=== PATIENT | male | born 1970 | race African-American/Black ===

== ENCOUNTER 2016-10-08 22:39 | Emergency (ER) | payer SELFPAY ==
[~2016-10-08] VITALS: Ht 180.3 cm; Wt 106.9 kg
[~2016-10-08 22:39] MED LIST: CYCL-36 PO; IBUP-238 PO; METH750T2 PO; NAPR-576 PO; Z.0.NO CURRENT MEDS
[2016-10-08 22:51] VITALS: BP 156/86; PULSE 73; RESP 14; TEMP 97.7; O2SAT 100
[2016-10-09] MEDS ORDERED: HYDR12.57 PO (01:20)
[2016-10-09] MEDS ORDERED: LISI-519 PO (01:20)
[2016-10-09 01:27] VITALS: BP 127/72; PULSE 67; RESP 18; TEMP 97.5; O2SAT 97
--- NOTE | 2016-10-09 01:56 | PD ---
HPI Chief Complaint: Headache Time Seen by Provider: : Travel History International Travel<30 days: No Contact w/Intl Traveler<30days: No Traveled to known affect area: No History of Present Illness HPI Patient is a 46-year-old male who comes in after he banged his head. He says he was climbing a ladder and hit the top of his head. He did not fall down he did not pass out. He said he had a headache, but he took Aleve and is better now. He denies nausea or vomiting. He had some dizziness at the time, but it is better. He denies numbness or tingling in his extremities. He denies any neck pain. PFSH Past Medical History Hypertension: Yes Tetanus Vaccination: Unknown Influenza Vaccination: No Past Surgical History Surgical History: No Previous Surgery Social History Alcohol Use: No Tobacco Use: No Substance Use: No Allergies-Medications (Allergen,Severity, Reaction): Coded Allergies: No Known Allergies (Verified , 10/09/16) Reported Meds & Prescriptions Reported Meds & Active Scripts Active Reported Hydrochlorothiazide 12.5 Mg Cap 12.5 Mg PO BID Lisinopril 5 Mg Tab 5 Mg PO BID Review of Systems General / Constitutional: No: Fever, Chills Eyes: No: Blurred Vision HENT: Positive: Headaches, No: Lightheadedness Cardiovascular: No: Chest Pain or Discomfort Respiratory: No: Shortness of Breath Gastrointestinal: No: Nausea, Vomiting Musculoskeletal: No: Myalgias, Pain Skin: No Rash, No Change in Pigmentation Neurologic: No: Weakness, Dizziness, Paresthesia, Sensory Disturbance Physical Exam Narrative GENERAL: Awake and alert, in no acute distress. SKIN: Focused skin assessment warm/dry. HEAD: Atraumatic. Normocephalic. EYES: Pupils equal and round and reactive. No scleral icterus. Extraocular movements intact ENT: Mucous membranes pink and moist. NECK: Trachea midline. No JVD. No cervical spine tenderness. CARDIOVASCULAR: Regular rate and rhythm. No murmur appreciated. RESPIRATORY: No accessory muscle use. Clear to auscultation. Breath sounds equal bilaterally. MUSCULOSKELETAL: No obvious deformities. No clubbing. No cyanosis. No edema. NEUROLOGICAL: Awake and alert. No obvious cranial nerve deficits. Motor grossly within normal limits. Normal speech. Data Data Last Documented VS Vital Signs Date Time Temp Pulse Resp B/P Pulse Ox O2 Delivery O2 Flow Rate FiO2 10/09/16 01:27 97.5 67 18 127/72 97 Room Air MDM Medical Decision Making Medical Screen Exam Complete: Yes Emergency Medical Condition: Yes Differential Diagnosis Headache versus head trauma versus concussion Narrative Course Patient is a 46-year-old male who comes in complaining of a headache after he bumped his head. Exam shows no neurologic abnormalities. Patient says he is feeling much better after the LEEP Tech. He is offered a CT scan of his head, but declines at this time. He'll be discharged home. He is advised to return any time for any worsening symptoms. Diagnosis Primary Impression: Headache Qualified Code: R51 - Acute nonintractable headache, unspecified headache type Patient Instructions: General Instructions, Head Injury (ED) Additional Instructions: Take Tylenol or Ibuprofen as needed for pain. Follow up with your doctor. Return to the ED as needed for any worsening symptoms. Disposition: 01 DISCHARGE HOME Condition: Stable Gin Lal MD Oct 09, 2016 01:56
== END 2016-10-09 02:11 | disposition home or self-care (01) ==
LOC: PHED 22:39
DX: R51 Headache (principal); I10 Essential (primary) hypertension; W22.8XXA Striking against or struck by other objects, initial encounter; Y93.39 Activity, other involving climbing, rappelling and jumping off
CPT/HCPCS: 99282

== ENCOUNTER 2017-01-20 10:54 | Inpatient (IN) | payer SELFPAY ==
[~2017-01-20] VITALS: Ht 182.9 cm; Wt 105.5 kg
[2017-01-20] VITALS (9 sets, daily range): BP systolic 120–158; BP diastolic 70–96; PULSE 61–75; RESP 16–20; TEMP 98–98.5; O2SAT 100
[~2017-01-20 10:54] MED LIST changes: -CYCL-36 PO; +HYDR12.57 PO; -IBUP-238 PO; +LISI-519 PO; -METH750T2 PO; -NAPR-576 PO; -Z.0.NO CURRENT MEDS
[2017-01-20] MEDS ORDERED: SODIUM CHLOR 0.9% 1000 ML INJ 1,000 ML IV ONE (10:56)
--- NOTE | 2017-01-20 11:05 | PD ---
HPI Chief Complaint: stroke alert Time Seen by Provider: 10:56 Travel History International Travel<30 days: No Contact w/Intl Traveler<30days: No Traveled to known affect area: No History of Present Illness HPI The patient is a 46-year-old [place] male who presents to the emergency department via EMS as a stroke alert. EMS states the patient's symptoms started approximately 1010 a.m. with left-sided facial droop, dysarthria, and weakness of the left aspect of the body. EMS states when they arrived the patient's stated that the patient's speech was slightly off, despite his accent, she states his speech was slightly altered. The patient also was noted to have left facial droop, weakness to left arm and left leg. The patient had fallen approximately 3 times after his symptoms started per EMS report. The patient does have a history of hypertension and took his blood pressure medications prior to arrival. The patient does complain of left-sided weakness and mild changes in his speech, he denies any headache or vision changes. The patient does have a history of hypertension, denies any previous history of CVA or TIA. Symptoms are moderate, started at 10:10 AM, and there are no current alleviating factors. PFSH Past Medical History Hypertension: Yes Past Surgical History Narrative Surgical Noncontributory Social History Alcohol Use: No Tobacco Use: No Substance Use: No Allergies-Medications (Allergen,Severity, Reaction): Coded Allergies: No Known Allergies (Verified Allergy, Unknown, 01/20/17) Reported Meds & Prescriptions Reported Meds & Active Scripts Active Reported Doxazosin (Doxazosin Mesylate) 4 Mg Tab 4 Mg PO DAILY Amlodipine (Amlodipine Besylate) 5 Mg Tab 5 Mg PO DAILY Hydrochlorothiazide 12.5 Mg Cap 12.5 Mg PO BID Lisinopril 5 Mg Tab 20 Mg PO BID Review of Systems Except as stated in HPI: all other systems reviewed are Neg HENT: No: Lightheadedness Cardiovascular: No: Chest Pain or Discomfort Respiratory: No: Shortness of Breath Gastrointestinal: No: Nausea, Vomiting Musculoskeletal: Positive: Weakness Neurologic: Positive: Weakness, Focal Abnormalities, Slurred Speech, No: Headache, Change in Mentation, Paresthesia, Sensory Disturbance Physical Exam Narrative GENERAL: Awake, alert, pleasant 46-year-old male who appears his stated age and is in no acute respiratory distress. SKIN: Focused skin assessment warm/dry. HEAD: Atraumatic. Normocephalic. EYES: Pupils equal and round. Pupils are 3 mm bilateral and reactive. EOMs are intact. Patient is able to see fingers at a distance of 2 feet without difficulty. Mild injection noted. ENT: No nasal bleeding or discharge. Mucous membranes pink and moist. NECK: Trachea midline. No JVD. CARDIOVASCULAR: Regular rate and rhythm. No murmur appreciated. RESPIRATORY: No accessory muscle use. Clear to auscultation. Breath sounds equal bilaterally. GASTROINTESTINAL: Abdomen soft, non-tender, nondistended. MUSCULOSKELETAL: No obvious deformities. No clubbing. No cyanosis. No edema. NEUROLOGICAL: Awake and alert. Asymmetry of smile with left-sided facial droop noted. Patient is able to see fingers at a distance of 2 feet without difficulty. EOMs are intact. Tongue is midline. Drift to left arm, however, does not follow the bed. Drift of the left leg, falls to the bed prior to 10 seconds. Finger to nose is normal. [id number] is normal. Mild dysarthria noted. Sensation is symmetric on the face, arms, legs bilaterally. A she is alert and oriented 3. Follows simple commands. PSYCHIATRIC: Appropriate mood and affect; insight and judgment normal. Data Data Last Documented VS Vital Signs Date Time Temp Pulse Resp B/P (MAP) Pulse Ox O2 Delivery O2 Flow Rate FiO2 01/20/17 12:05 75 20 140/91 (107) 100 Nasal Cannula 2.00 01/20/17 10:55 98.3 Orders Orders Diet Npo (01/20/17 Lunch) Activity Bed Rest (01/20/17 ) Electrocardiogram (01/20/17 ) I-Stat Creatinine (01/20/17 10:56) I-Stat Profile (01/20/17 10:56) Prothrombin Time / Inr (Pt) (01/20/17 10:56) Act Partial Throm Time (Ptt) (01/20/17 10:56) Complete Blood Count With Diff (01/20/17 10:56) Fibrinogen (01/20/17 10:56) Creatine Kinase (Cpk) (01/20/17 10:56) Troponin I (01/20/17 10:56) Ua Includes Microscopic (01/20/17 10:56) Drug Screen, Random Urine (01/20/17 10:56) Type And Screen (01/20/17 10:56) Ct Brain W/O Iv Contrast(Rout) (01/20/17 ) Cta Brain W Iv Contrast W 3d (01/20/17 10:56) Cta Neck W Iv Contrast W 3d (01/20/17 10:56) Consult Neurology (01/20/17 ) Blood Glucose (01/20/17 10:56) Ecg Monitoring (01/20/17 10:56) Neuro Checks Q2HX12,Q4H (01/20/17 10:56) Nursing Bedside Swallow Assess .ONCE (01/20/17 10:56) Iv Access Insert/Monitor (01/20/17 10:56) NPO (01/20/17 10:56) Oximetry (01/20/17 10:56) Oxygen Administration (01/20/17 10:56) Sodium Chlor 0.9% 1000 Ml Inj (Ns 1000 M (01/20/17 10:56) Resp Oxygen Filiberto C Titrat 1-4 L (01/20/17 10:56) Cath For Specimen (01/20/17 10:56) (Hub Use Only)Inp Phy Cons/Ref (01/20/17 ) ^ Call Pharmacy (01/20/17 11:15) Nih Stroke Scale - Nihss .ONCE (01/20/17 11:15) Urinary Catheter Insert/Apply (01/20/17 11:15) Anticoagulant Alert (01/20/17 11:15) ^ Post Infusion Restrictions (01/20/17 11:15) ^ Medication Alert (01/20/17 11:15) Vital Signs (Adult) .As directed (01/20/17 11:15) Notify Dr: Blood Pressure (01/20/17 11:15) ^ Medication Alert (01/20/17 11:15) Alteplase Bolus (Activase Bolus) (01/20/17 11:15) Alteplase Drip (Activase Drip) (01/20/17 11:30) Sodium Chloride 0.9% Inj (Ns Inj) (01/20/17 11:15) Misc Nursing Information (01/20/17 11:15) Resp Oxygen Filiberto C Titrat 1-4 L (01/20/17 ) Ct Brain W/O Iv Contrast(Rout) (01/21/17 ) Iohexol 350 Inj (Omnipaque 350 Inj) (01/20/17 11:23) CKMB (01/20/17 10:55) CKMB% (01/20/17 10:55) Scd Bilateral/Knee High UMAIR.QSHIFT (01/20/17 11:45) Mri Brain W&W/O Contrast (01/20/17 ) Echo 2d Comp With Doppler (01/20/17 ) Lipid Profile (01/20/17 11:45) Lupus Anticoagulant Drvvt (01/20/17 11:45) Cardiolipin Abs Igg,Igm,Iga (01/20/17 11:45) Protein C Activity (01/20/17 11:45) Protein S Activity (01/20/17 11:45) Factor V Leiden (01/20/17 11:45) Prothrombin [id number] Mutation (01/20/17 11:45) Rapid Plasmin Reagin Screen (01/20/17 11:45) Consult Cardiology (01/20/17 ) (Hub Use Only)Inp Phy Cons/Ref (01/20/17 ) Admit Order (Ed Use Only) (01/20/17 ) Patient Accounts Clerk / Telemetry UMAIR.Q8H (01/20/17 12:15) Vital Signs (Adult) Q4H (01/20/17 12:15) Activity Bed Rest (01/20/17 12:15) Labs Laboratory Tests Test 01/20/17 10:55 White Blood Count 6.8 TH/MM3 Red Blood Count 4.57 MIL/MM3 Hemoglobin 14.2 GM/DL Bedside Hemoglobin 13.6 G/DL Hematocrit 41.2 % Bedside Hematocrit 40.0 % Mean Corpuscular Volume 90.1 FL Mean Corpuscular Hemoglobin 31.1 PG Mean Corpuscular Hemoglobin Concent 34.5 % Red Cell Distribution Width 13.8 % Platelet Count 231 TH/MM3 Mean Platelet Volume 7.4 FL Neutrophils (%) (Auto) 57.2 % Lymphocytes (%) (Auto) 33.6 % Monocytes (%) (Auto) 7.5 % Eosinophils (%) (Auto) 1.1 % Basophils (%) (Auto) 0.6 % Neutrophils # (Auto) 3.9 TH/MM3 Lymphocytes # (Auto) 2.3 TH/MM3 Monocytes # (Auto) 0.5 TH/MM3 Eosinophils # (Auto) 0.1 TH/MM3 Basophils # (Auto) 0.0 TH/MM3 CBC Comment DIFF FINAL Differential Comment Prothrombin Time 10.2 SEC Prothromb Time International Ratio 0.9 RATIO Activated Partial Thromboplast Time 27.9 SEC Fibrinogen 374 mg/dL Bedside Sodium 142 MMOL/L Bedside Potassium 3.3 MMOL/L Bedside Chloride 100 MMOL/L Bedside Blood Urea Nitrogen 16 MG/DL Bedside Creatinine 1.0 MG/DL Bedside Glucose 115 MG/DL Total Creatine Kinase 841 U/L Creatine Kinase MB 3.2 NG/ML Creatine Kinase MB % 0.4 % Troponin I LESS THAN 0.02 NG/ML MDM Medical Screen Exam Complete: Yes Emergency Medical Condition: Yes Medical Record Reviewed: Yes Differential Diagnosis Differential diagnoses includes TIA, CVA, acute neurologic deficit, seizure, intracranial hemorrhage, intracranial mass. Narrative Course IV was established, labs are drawn and sent, and the patient was placed on cardiac telemetry monitoring and continuous pulse ox imaging monitoring. A stroke alert was called and the patient went immediately to CT for CT the brain as well as CTA of the head and neck. The patient's stroke scale was 6 with partial facial paralysis noted, drift to left arm for 10 seconds, drift of the left leg of falls before 5 seconds, and mild dysarthria. A call was placed to the on-call neurologist. CT of the brain is negative for intracranial hemorrhage, I discussed the patient with the radiologist. I also had a discussion with the neurologist, Dr. Harshad Ferrari, who agrees with TPA administration. I had a discussion with the patient at bedside regarding the risk and benefits of TPA, he is agreeable. Therefore, TPA was ordered based on weight. The patient will be admitted to the intensive care unit. The patient was evaluated by the neurologist in the emergency department. Critical Care Narrative Aggregate critical care time was 40 minutes. Time to perform other separately billable procedures was not included in the critical care time. My time did not include minutes spent treating any other patients simultaneously or on activities that did not directly contribute to the patient's treatment. The services I provided to this patient were to treat and/or prevent clinically significant deterioration that could result in: Anoxia, hypoxia, neurologic deficit. I provided critical care services requiring my management, as noted below: Chart data review, documentation time, medication orders and management, vital sign assessments/reviewing monitor data, ordering and reviewing lab tests, ordering and interpreting/reviewing x-rays and diagnostic studies, care of the patient and discussion of the patient with the admitting physicians. Stroke Alert NIHSS NIH Stroke Scale Result: 6 NIHSS Time Completed: 10:52 Procedures Procedure Narrative EKG reveals normal sinus rhythm with a rate of 75. Nonspecific T wave changes. Last Impressions Head CT 01/20/17 0000 Signed Impressions: Service Date/Time: Friday, January 20, 2017 10:53 - CONCLUSION: No acute disease. Reagan Kulkarni MD Laboratory Tests Test 01/20/17 10:55 White Blood Count 6.8 TH/MM3 Red Blood Count 4.57 MIL/MM3 Hemoglobin 14.2 GM/DL Bedside Hemoglobin 13.6 G/DL Hematocrit 41.2 % Bedside Hematocrit 40.0 % Mean Corpuscular Volume 90.1 FL Mean Corpuscular Hemoglobin 31.1 PG Mean Corpuscular Hemoglobin Concent 34.5 % Red Cell Distribution Width 13.8 % Platelet Count 231 TH/MM3 Mean Platelet Volume 7.4 FL Neutrophils (%) (Auto) 57.2 % Lymphocytes (%) (Auto) 33.6 % Monocytes (%) (Auto) 7.5 % Eosinophils (%) (Auto) 1.1 % Basophils (%) (Auto) 0.6 % Neutrophils # (Auto) 3.9 TH/MM3 Lymphocytes # (Auto) 2.3 TH/MM3 Monocytes # (Auto) 0.5 TH/MM3 Eosinophils # (Auto) 0.1 TH/MM3 Basophils # (Auto) 0.0 TH/MM3 CBC Comment DIFF FINAL Differential Comment Prothrombin Time 10.2 SEC Prothromb Time International Ratio 0.9 RATIO Activated Partial Thromboplast Time 27.9 SEC Fibrinogen 374 mg/dL Bedside Sodium 142 MMOL/L Bedside Potassium 3.3 MMOL/L Bedside Chloride 100 MMOL/L Bedside Blood Urea Nitrogen 16 MG/DL Bedside Creatinine 1.0 MG/DL Bedside Glucose 115 MG/DL Total Creatine Kinase 841 U/L Troponin I LESS THAN 0.02 NG/ML CTA of the carotids reveals normal study CTA of the head reveals no evidence of carotid or proximal cerebral filling defects or steno-occlusive disease Physician Communication Physician Communication The on-call vmware administrator was paged for admission. I discussed the patient with Dr. Bagley who agrees with admission. Diagnosis Diagnosis: Primary Impression: Dysarthria due to cerebrovascular accident (CVA) Admitting Physician Requests: Admit Condition: Stable Salo Roy MD Jan 20, 2017 11:05
[2017-01-20] MEDS ORDERED: SODIUM CHLORIDE 0.9% 50 ML BAG IVF ONE (11:15)
[2017-01-20] MEDS ORDERED: ALTEPLASE BOLUS 9 MG/9 ML SYR IV ONE (11:15)
[2017-01-20] MEDS ORDERED: MISCELLANEOUS NURSING INFORMATION XX PRN (11:15)
[2017-01-20 11:16] LABS: I-STAT POTASSIUM 3.3 MMOL/L (3.5-4.9); I-STAT SODIUM 142 MMOL/L (138-146)
[2017-01-20 11:19] LABS: AUTOMATED NEUTROPHIL # 3.9 TH/MM3 (1.8-7.7); BASOPHIL % 0.6 % (0.0-2.0); EOSINOPHIL # 0.1 TH/MM3 (0-0.4); EOSINOPHIL % 1.1 % (0.0-4.0); HEMATOCRIT 41.2 % (39.0-51.0); HEMO FLAGS DIFF FINAL; LYMPH % 33.6 % (9.0-44.0); LYMPHOCYTE # 2.3 TH/MM3 (1.0-4.8); MEAN CELL VOLUME 90.1 FL (80.0-100.0); MEAN CORPUSCULAR HEMOGLOBIN 31.1 PG (27.0-34.0); MEAN CORPUSCULAR HGB CONC 34.5 % (32.0-36.0); MONO % 7.5 % (0.0-8.0); NEUT % 57.2 % (16.0-70.0); PLATELET COUNT 231 TH/MM3 (150-450); RED BLOOD COUNT 4.57 MIL/MM3 (4.50-5.90); RED CELL DISTRIBUTION WIDTH 13.8 % (11.6-17.2); WHITE BLOOD COUNT 6.8 TH/MM3 (4.0-11.0)
--- NOTE | 2017-01-20 11:20 | RADRPT ---
EXAM DATE/TIME: 01/20/2017 10:53 [facility] COMPARISON: No previous studies available for comparison. INDICATIONS : Slurred speech, left sided weakness. RADIATION DOSE: 69.15 CTDIvol (mGy) This report was called by Stewart Roy at 11: 15 MEDICAL HISTORY : Hypertension. SURGICAL HISTORY : unobtainable ENCOUNTER: Initial ACUITY: 1 day PAIN SCALE: 0/10 LOCATION: cranial TECHNIQUE: Multiple contiguous axial images were obtained of the head. Using automated exposure control and adj ustment of the mA and/or kV according to patient size, radiation dose was kept as low as reasonably a chievable to obtain optimal diagnostic quality images. DICOM format image data is available electro nically for review and comparison. FINDINGS: CEREBRUM: The ventricles are normal for age. No evidence of midline shift, mass lesion, hemorrhage or acute in farction. No extra-axial fluid collections are seen. POSTERIOR FOSSA: The cerebellum and brainstem are intact. The 4th ventricle is midline. The cerebellopontine angle i s unremarkable. EXTRACRANIAL: The visualized portion of the orbits is intact. SKULL: The calvaria is intact. No evidence of skull fracture. CONCLUSION: No acute disease. Reagan Kulkarni MD on January 20, 2017 at 11:13 Board Certified Radiologist. This report was verified electronically.
[2017-01-20] MEDS ORDERED: IOHEXOL 350 MG/ML 10 ML VIAL (for RAD DIAG) IVCONTRAST ONE (11:23)
[2017-01-20 11:27] LABS: APTT (PATIENT) 27.9 SEC (24.3-30.1); INTERNATIONAL NORMALIZED RATIO 0.9 RATIO; PROTHROMBIN TIME - PATIENT 10.2 SEC (9.8-11.6)
[2017-01-20] MEDS ORDERED: ALTEPLASE DRIP 81 MG in SYRINGE/BAG 1 EA IV ONE (11:30)
[2017-01-20 11:46] LABS: CREATINE KINASE 841 U/L (39-308)
[2017-01-20 11:59] LABS: CKMB 3.2 NG/ML (0.5-3.6)
[2017-01-20] MEDS ORDERED: AMLO5TAB2 PO (12:05)
[2017-01-20] MEDS ORDERED: DOXA1TAB34 PO (12:05)
--- NOTE | 2017-01-20 12:10 | RADRPT ---
EXAM DATE/TIME: 01/20/2017 10:58 [facility] COMPARISON: No previous studies available for comparison. INDICATIONS : Slurred speech, left sided weakness. IV CONTRAST: 74 cc Omnipaque 350 (iohexol) IV ; Cumulative dose for multiple exams. RADIATION DOSE: 28.73 CTDIvol (mGy) ; Combined studies MEDICAL HISTORY : Hypertension. SURGICAL HISTORY : unobtainable ENCOUNTER: Initial ACUITY: 1 day PAIN SCALE: 0/10 LOCATION: cranial TECHNIQUE: Volumetric scanning was performed using a multi-row detector CT scanner. The data was post processed with a variety of visualization algorithms including full volume maximum intensity projection, multi -planar sliding thin slab reformation, curved planar reformation, and surface rendering techniques. Using automated exposure control and adjustment of the mA and/or kV according to patient size, radiat ion dose was kept as low as reasonably achievable to obtain optimal diagnostic quality images. DICO M format image data is available electronically for review and comparison. FINDINGS: There is excellent visualization of the major intracranial arteries out to the second-order branch ve ssels. There is no evidence for aneurysm, vessel truncation or stenosis, and no evidence for vascular malfor mation. CONCLUSION: No evidence of carotid or proximal cerebral filling defects or steno-occlusive disease. Reagan Kulkarni MD on January 20, 2017 at 12:02 Board Certified Radiologist. This report was verified electronically.
--- NOTE | 2017-01-20 12:11 | RADRPT ---
EXAM DATE/TIME: 01/20/2017 10:58 [facility] COMPARISON: No previous studies available for comparison. INDICATIONS : Slurred speech, left sided weakness. IV CONTRAST: 74 cc Omnipaque 350 (iohexol) IV ; Cumulative dose for multiple exams. RADIATION DOSE: 28.73 CTDIvol (mGy) ; Combined studies MEDICAL HISTORY : Hypertension. SURGICAL HISTORY : unobtainable ENCOUNTER: Initial ACUITY: 1 day PAIN SCALE: 0/10 LOCATION: neck Elevated flow velocities and ICA/CCA ratios have been found to correlate with increased degrees of vessel stenosis, calculated as percentage of diameter relative to a normal segment of distal ICA/CCA. TECHNIQUE: Volumetric scanning was performed using a multirow detector CT scanner. The data was post processed with a variety of visualization algorithms including full-volume maximum intensity projection, multip lanar sliding thin-slab reformation, curved-planar reformation, and surface-rendering techniques. Us ing automated exposure control and adjustment of the mA and/or kV according to patient size, radiatio n dose was kept as low as reasonably achievable to obtain optimal diagnostic quality images. DICOM f ormat image data is available electronically for review and comparison. FINDINGS: AORTIC ARCH: There is a three-vessel origin of the great vessels from the aorta. No evidence of ostial narrowing. RIGHT CAROTID: The common carotid artery is intact. The carotid bulb has a normal configuration without ulceration o r narrowing. The internal carotid artery lumen is smooth without stenosis. The external carotid amy ry is intact. LEFT CAROTID: The common carotid artery is intact. The carotid bulb has a normal configuration without ulceration or narrowing. The internal carotid artery lumen is smooth without stenosis. The external carotid ar milena is intact. VERTEBRALS: The vertebral arteries have a symmetric diameter. No stenotic lesions are seen. CONCLUSION: Normal MRA of the extracranial carotid and vertebral arteries. Reagan Kulkarni MD on January 20, 2017 at 12:09 Board Certified Radiologist. This report was verified electronically.
--- NOTE | 2017-01-20 12:16 | MB ---
cc: GILMA SERNA M.D. DATE OF CONSULTATION: 01/20/2017 REASON FOR CONSULTATION: Stroke alert REFERRING PHYSICIAN Dr. Salo Roy HISTORY OF PRESENT ILLNESS Mr. Beltran is a 46-year-old -Thai man who has a history of hypertension who developed at 10:10 a.m. this morning acute onset of left-sided weakness. At that time he had a left facial droop. He had difficulty with moving his left arm and left leg due to severe weakness. He also had slurred speech but no aphasia. He came to the ER via EMS. EMS noted the patient to have a left facial droop and weakness in the left arm and left leg. He had fallen approximately three times after the onset of his symptoms. He has no prior history of stroke or TIA. PAST MEDICAL HISTORY: History of hypertension. MEDICATIONS AT HOME: 1. Hydrochlorothiazide. 2. Lisinopril. 3. Amlodipine. He has does not take any anticoagulation. MEDICATIONS No antiplatelet medications. ALLERGIES NONE KNOWN. SOCIAL HISTORY Denies alcohol use, tobacco use or substance use. NEUROLOGIC EXAMINATION His blood pressure 157/82, pulse 72 regular, he is in sinus rhythm, respirations are 20, temperature 98.3 degrees. Higher cortical function: He is alert, oriented x3. Follows commands. Speech is mildly dysarthric. Cranial nerves reveal a very mild left upper motor neuron VII palsy. Other cranial nerves intact. On motor exam he has mild pronator drift, left upper extremity, with weakness rated at roughly 4+/5 proximally and distally, normal strength in the right arm. Left leg, he has a drift after about three seconds of holding the leg off the bed. Strength is rated at about 4/5 proximally and distally with normal strength in the right upper extremity. He has diminished fine motor skills, left hand. Sensory exam intact. Reflexes 1+ symmetric with no Babinski sign present. CT of the brain is within normal limits. CTA is currently pending. LABORATORY DATA White count is 6800, hemoglobin 14.2, hematocrit 41.2%, platelet count 231,000, PT 10.2, INR 0.9, APTT 27.9. Sodium is 142, potassium 3.3, chloride 100, BUN is 16, creatinine is 1, glucose 115. IMPRESSION Acute right hemisphere stroke. The patient does meet criteria for IV TPA which has already been started. I discussed the case with Dr. Vega Colin. He is party demonstrator for interventional radiology. He will be reviewing the CT angiography. The NIH stroke scale initially was 6. Time of arrival in the ED was 10:54 a.m. The time of TPA start was 11:30 a.m. Will follow the post TPA order. MD NEEL Preston/MAZIN /11:55 AM /12:02 PM
--- NOTE | 2017-01-20 12:42 | MB ---
cc: GILMA SERNA M.D. DATE OF CONSULTATION: 01/20/2017 REASON FOR CONSULTATION: ADDENDUM Since the original dictation, I have been in contact with Dr. Vega Colin of interventional radiology, who has reviewed the CT angiogram which he thinks is within normal limits with no sign of large vessel occlusion. Therefore, the patient is not a candidate for thrombectomy. The patient seems to be improving at the present time, still has some weakness left on the left leg but is tolerating the TPA infusion very well. Will continue to monitor him closely. MD NEEL Preston/MAZIN /12:01 PM /12:43 PM
[2017-01-20] MEDS ORDERED: RESP: ALBUTEROL 2.5 MG/IPRATROPIUM 0.5 MG NEB (PRN) INH (12:45)
[2017-01-20] MEDS ORDERED: MAGNESIUM HYDROXIDE SUSP 30 ML CUP PO PRN (12:45)
[2017-01-20] MEDS ORDERED: BISACODYL 10 MG SUPP RECTAL PRN (12:45)
[2017-01-20] MEDS ORDERED: SENNOSIDES 8.6 MG TAB PO PRN (12:45)
[2017-01-20] MEDS ORDERED: SODIUM CHLORIDE 0.9% FLUSH 10 ML FLUSH IV FLUSH PRN (12:45)
[2017-01-20] MEDS ORDERED: CHLORHEXIDINE GLUCONATE 2 % 1 PACK (2 CLOTHS) TOP PRN (12:45)
[2017-01-20] MEDS ORDERED: LACTULOSE SYRUP 20 GM/30 ML CUP PO PRN (12:45)
[2017-01-20] MEDS ORDERED: MISCELLANEOUS NURSING INFORMATION XX SCH (12:45)
[2017-01-20] MEDS ORDERED: ENALAPRILAT 1.25 MG/ML VIAL IV PUSH PRN (13:00)
[2017-01-20] MEDS ORDERED: GLUCAGON 1 MG/ML VIAL OTHER PRN (13:00)
[2017-01-20] MEDS ORDERED: LABETALOL HCL 100 MG/20 ML VIAL IV PUSH PRN (13:00)
[2017-01-20] MEDS ORDERED: DEXTROSE 50% IN WATER 50 ML VIAL(D50) IV PUSH PRN (13:00)
[2017-01-20 13:15] LABS: BACTERIA, URINE RARE /hpf; BLOOD, URINE MOD (NEG); GLUCOSE,URINE NEG (NEG); KETONE, URINE NEG (NEG); NITRITE,URINE NEG (NEG); PH, URINE 7.5 (5.0-8.5); URINE COLOR YELLOW (YELLW/STRAW)
[2017-01-20] MEDS ORDERED: GADODIAMIDE PF 287 MG/ML 20 ML VIAL (for RAD MRI) IV PUSH ONE (13:15)
--- NOTE | 2017-01-20 13:18 | HHI.HP ---
HPI Service Critical Care Medicine Primary Care Physician Miguel Angel Delacruz MD Admission Diagnosis CVA with mild dysarthria Diagnosis: Travel History International Travel<30 Days: No Contact w/Intl Traveler <30 Da: No Traveled to Known Affected Are: No History of Present Illness This is a 46-year-old [place] male that presented to the ED via EMS as a stroke alert. Per report , thepatient's symptoms started approximately 1010 a.m. with left-sided facial droop, dysarthria, and weakness of the left aspect of the body. Upon presentation to the ED , the patient also was noted to have left facial droop, weakness to left arm and left leg. The patient had fallen approximately 3 times after his symptoms started per EMS report. The patient does have a history of hypertension and took his blood pressure medications prior to arrival to include Doxazosin, amlodipine, lisinopril, and hydrochlorothiazide. The patient does complain of left-sided weakness and mild changes in his speech, he denies any headache or vision changes. The patient does have a history of hypertension, denies any previous history of CVA or TIA. Symptoms are moderate, started at 10:10 AM, and there are no current alleviating factors. A stroke alert was initiated, Dr. Ferrari neurology performed an evaluation, CT of the brain was performed which revealed no acute abnormality, CTA brain, and neck normal, as well as MRA. TPA was initiated at 11:30. Critical care medicine was consulted[facility] Past Medical History Hypertension: Yes Past Surgical History Narrative Surgical Noncontributory Social History Alcohol Use: No Tobacco Use: No Substance Use: No Allergies-Medications (Allergen,Severity, Reaction): Coded Allergies: No Known Allergies (Verified Allergy, Unknown, 01/20/17) Reported Meds & Prescriptions Reported Meds & Active Scripts Active Reported Doxazosin (Doxazosin Mesylate) 4 Mg Tab 4 Mg PO DAILY Amlodipine (Amlodipine Besylate) 5 Mg Tab 5 Mg PO DAILY Hydrochlorothiazide 12.5 Mg Cap 12.5 Mg PO BID Lisinopril 5 Mg Tab 20 Mg PO BID Review of Systems Except as stated in HPI: all other systems reviewed are Neg HENT: No: Lightheadedness Cardiovascular: No: Chest Pain or Discomfort Respiratory: No: Shortness of Breath Gastrointestinal: No: Nausea, Vomiting Musculoskeletal: Positive: Weakness Neurologic: Positive: Weakness, Focal Abnormalities, Slurred Speech, No: Headache, Change in Mentation, Paresthesia, Sensory Disturbance Physical Exam Vital Signs Vital Signs Date Time Temp Pulse Resp B/P (MAP) Pulse Ox O2 Delivery O2 Flow Rate FiO2 01/20/17 12:57 74 16 139/78 (98) 100 Nasal Cannula 2.00 01/20/17 12:15 100 Nasal Cannula 2.00 01/20/17 12:05 75 20 140/91 (107) 100 Nasal Cannula 2.00 01/20/17 11:00 100 Nasal Cannula 2.00 01/20/17 10:55 98.3 72 20 157/82 (107) 100 Physical Exam GENERAL: This is a well-developed well-nourished male, lying supine noted mild dysarthria, and mild left-sided facial droop SKIN: Warm and dry. HEAD: Atraumatic. Normocephalic. EYES: Pupils equal and round. No scleral icterus. No injection or drainage. EOMI ENT: No nasal bleeding or discharge. Mucous membranes pink and moist. NECK: Trachea midline. No JVD. CARDIOVASCULAR: Normal rate, regular rhythm. Telemetry sinus rhythm RESPIRATORY: No accessory muscle use. Clear to auscultation. Breath sounds equal bilaterally. GASTROINTESTINAL: Abdomen soft, non-tender, nondistended. No guarding. MUSCULOSKELETAL: Extremities without clubbing, cyanosis, or edema. No obvious deformities. NEUROLOGICAL: Awake and alert. RASS 0. No gross focal/sensory deficits. Follows commands in all 4 extremities. Left-sided pronator drift and Motor strength left upper and lower extremity 4/5, right upper and lower extremity 5/5. Cranial nerves II through XII grossly intact with exception of facial nerve CN VII, with left-sided facial droop. Tongue protrusion midline Laboratory Laboratory Tests Test 01/20/17 10:55 01/20/17 12:30 White Blood Count 6.8 Red Blood Count 4.57 Hemoglobin 14.2 Bedside Hemoglobin 13.6 Hematocrit 41.2 Bedside Hematocrit 40.0 Mean Corpuscular Volume 90.1 Mean Corpuscular Hemoglobin 31.1 Mean Corpuscular Hemoglobin Concent 34.5 Red Cell Distribution Width 13.8 Platelet Count 231 Mean Platelet Volume 7.4 Neutrophils (%) (Auto) 57.2 Lymphocytes (%) (Auto) 33.6 Monocytes (%) (Auto) 7.5 Eosinophils (%) (Auto) 1.1 Basophils (%) (Auto) 0.6 Neutrophils # (Auto) 3.9 Lymphocytes # (Auto) 2.3 Monocytes # (Auto) 0.5 Eosinophils # (Auto) 0.1 Basophils # (Auto) 0.0 CBC Comment DIFF FINAL Differential Comment Prothrombin Time 10.2 Prothromb Time International Ratio 0.9 Activated Partial Thromboplast Time 27.9 Fibrinogen 374 Bedside Sodium 142 Bedside Potassium 3.3 Bedside Chloride 100 Bedside Blood Urea Nitrogen 16 Bedside Creatinine 1.0 Bedside Glucose 115 Total Creatine Kinase 841 Creatine Kinase MB 3.2 Creatine Kinase MB % 0.4 Troponin I LESS THAN 0.02 Result Diagram: 01/20/17 1055 Imaging Last Impressions Neck CTA 01/20/17 1056 Signed Impressions: Service Date/Time: Friday, January 20, 2017 10:58 - CONCLUSION: Normal MRA of the extracranial carotid and vertebral arteries. Reagan Kulkarni MD Head CTA 01/20/17 1056 Signed Impressions: Service Date/Time: Friday, January 20, 2017 10:58 - CONCLUSION: No evidence of carotid or proximal cerebral filling defects or steno-occlusive disease. Reagan Kulkarni MD Head CT 01/20/17 0000 Signed Impressions: Service Date/Time: Friday, January 20, 2017 10:53 - CONCLUSION: No acute disease. Reagan Kulkarni MD Septic Shock Reassessment Heart: Regular rate and rhythm Lungs: Clear Skin: Warm Peripheral Pulses: Bounding Right Radial Bounding Left Radial Bounding Right Dorsalis Pedis Bounding Left Dorsalis Pedis Caprini VTE Risk Assessment VTE Pharm Contraindication: Documented (patient status post TPA) Caprini Risk Assessment Model Point Value = 1 Point Value = 2 Point Value = 3 Point Value = 5 Age 41-60 Minor surgery BMI > 25 kg/m2 Swollen legs Varicose veins or History of unexplained or recurrent spontaneous Oral contraceptives or hormone replacement Sepsis (< 1 month) Serious lung disease, including pneumonia (< 1 month) Abnormal pulmonary function Acute myocardial infarction Congestive heart failure (< 1 month) History of inflammatory bowel disease Medical patient at bed rest Age 61-74 Arthroscopic surgery Major open surgery (> 45 min) Laparoscopic surgery (> 45 min) Malignancy Confined to bed (> 72 hours) Immobilizing plaster cast Central venous access Age >= 75 History of VTE Family history of VTE Factor V Leiden Prothrombin [id number] Lupus anticoagulant Anticardiolipin antibodies Elevated serum homocysteine Heparin-induced thrombocytopenia Other congenital or acquired thrombophilia Stroke (< 1 month) Elective arthroplasty Hip, pelvis, or leg fracture Acute spinal cord injury (< 1 month) Prophylaxis Regimen Total Risk Factor Score Risk Level Prophylaxis Regimen 0-1 Low Early ambulation 2 Moderate Order ONE of the following: *Sequential Compression Device (SCD) *Heparin 5000 units SQ BID 3-4 Higher Order ONE of the following medications: *Heparin 5000 units SQ TID *Enoxaparin/Lovenox 40 mg SQ daily (WT < 150 kg, CrCl > 30 mL/min) *Enoxaparin/Lovenox 30 mg SQ daily (WT < 150 kg, CrCl > 10-29 mL/min) *Enoxaparin/Lovenox 30 mg SQ BID (WT < 150 kg, CrCl > 30 mL/min) AND/OR *Sequential Compression Device (SCD) 5 or more Highest Order ONE of the following medications: *Heparin 5000 units SQ TID (Preferred with Epidurals) *Enoxaparin/Lovenox 40 mg SQ daily (WT < 150 kg, CrCl > 30 mL/min) *Enoxaparin/Lovenox 30 mg SQ daily (WT < 150 kg, CrCl > 10-29 mL/min) *Enoxaparin/Lovenox 30 mg SQ BID (WT < 150 kg, CrCl > 30 mL/min) AND *Sequential Compression Device (SCD) Assessment and Plan Assessment and Plan Assessment This is a 46-year-old male with history of hypertension currently on 4 antihypertensive meds that presented to the ED with acute right hemispheric CVA status post TPA. Condition critical. Admit to ICU. Assessment Acute right hemispheric CVA Hypertension Plan Plan by systems: Neurologic: Neurochecks every 4 hours per ICU protocol post TPA Respiratory: Maintain O2 sat greater than 92% O2 via nasal cannula 1-4 L/m if required Cardiovascular: Maintain SBP less than 180/105 Treat blood pressureif SBP > 220 or DBP > 120: Vasotec 1.25 mg IV every 4 hours when necessary for SBP > 220 mmHg DBP >120mmHg Labetalol 10 mg IV every 2 hours PRN for SBP > 220 mmHg, DBP 120 mmHg Patient's antihypertensive medications at home included doxazosin 4 mg/day, amlodipine 5 mg/day, lisinopril 5 mg/day and hydrochlorothiazide 12.5 mg/day Renal: Maintain Flores -- Strict I/Os FEN/GI: Normal saline 70 cc/hour Maintain NPO status for now Obtain swallow study prior to initiation of diet Bowel regimen PRN Heme/ID: Urine noted to be cloudy obtain urine culture follow-up result Monitor CBC Follow-up prothrombotic studies Endocrine: Glucose monitoring, low dose insulin regimen May be discontinued blood glucose fingersticks and blood glucose less than 150mg /dl in the first 48 hours post TPA -- SSI Prophylaxis: GI Prophylaxis Famotidine BID DVT Prophylaxis -- SCDs No pharmacological DVT prophylaxis at this time status post TPA Lines: Peripheral IVs providing adequate access. Dispo: This patient remains critically ill with one or more organ systems which are or may become a threat to life. I have spent in excess of 39 minutes discontinuously in the care and management of this patient. This time is exclusive of procedures, and includes, but is not limited to, evaluation of the patient, review of the medical record, discussions with family, consultants, nursing staff, or respiratory therapy, and documentation in the medical record. Code Status Full Discussed Condition With Dr. Roy, patient, , ED RN at bedside Daniela Bagley MD Jan 20, 2017 13:18
--- NOTE | 2017-01-20 13:52 | RADRPT ---
EXAM DATE/TIME: 01/20/2017 13:11 [facility] COMPARISON: CT BRAIN W/O CONTRAST, January 20, 2017, 10:53. INDICATIONS : Stroke alert. Post TPA. CONTRAST: 20 cc Omniscan (gadodiamide) IV MEDICAL HISTORY : Hypertension. SURGICAL HISTORY : None. ENCOUNTER: Initial ACUITY: 1 day PAIN SCORE: 0/10 LOCATION: cranial TECHNIQUE: Multiplanar, multisequence MRI of the brain was performed both prior to and following the administrat ion of paramagnetic contrast. FINDINGS: CEREBRUM: The ventricles are normal for age. No evidence of midline shift, mass lesion, hemorrhage or acute in farction. Small, subcentimeter lacunar type infarct in the posterior limb of the right internal caps ule. No extraaxial fluid collections are seen. The pituitary gland and suprasellar cistern are jayy l in configuration. WHITE MATTER: No significant signal abnormalities are seen in the white matter. Minimal periventricular changes carmen und the frontal horns of the lateral ventricles. POSTERIOR FOSSA: The cerebellum and brainstem are intact. The 4th ventricle is midline. The cerebellopontine angle is unremarkable. The cerebellar tonsils are normal in position. DIFFUSION IMAGING: No focal areas of restricted diffusion are seen. No evidence of acute infarction. EXTRACRANIAL: The visualized portions of the orbits and paranasal sinuses are unremarkable. POST-CONTRAST: No abnormal areas of parenchymal or dural enhancement. No evidence of blood-brain barrier breakdown. CONCLUSION: 1. Small, subcentimeter lacunar type infarct at the junction of the posterior limb of the right inter nal capsule and the adjacent thalamus. 2. Otherwise negative. No diffusion restriction to suggest an acute or subacute ischemic. Vega Colin MD on January 20, 2017 at 13:47 Board Certified Radiologist. This report was verified electronically.
--- NOTE | 2017-01-20 14:15 | PD.CONS ---
HPI Consult Requested By Primary Care Physician Miguel Angel Delacruz MD History of Present Illness 46-year-old -[place] man who has a history of hypertension who developed at 10:10 a.m. this morning acute onset of left-sided weakness. At that time he had a left facial droop. He had difficulty with moving his left arm and left leg due to severe weakness. He also had slurred speech but no aphasia. He came to the ER via EMS. EMS noted the patient to have a left facial droop and weakness in the left arm and left leg. He had fallen approximately three times after the onset of his symptoms. He has no prior history of stroke or TIA. Cardiology consulted for DEUCE. Review of Systems Consitutional: DENIES: Fatigue, Fever, Chills, Weight gain, Weight loss Eyes: DENIES: Amaurosis Fugax, Change in vision HEENT: DENIES: Lightheadedness, Change in hearing Respiratory: DENIES: See HPI, Cough, Snoring, Shortness of breath, Wheezing, Sputum production Cardiovascular: DENIES: See HPI, Chest pain, Palpitations, Syncope, Tachycardia Gastrointestinal: DENIES: Nausea, Vomiting, Change in bowel habits, Reflux, Bloody stools, Melena Genitourinary: DENIES: Urinary incontinence, Difficulty voiding Integumentary: DENIES: Rash Neurologic: DENIES: Tingling or numbness, Memory problems, Poor Balance, Stroke symptoms Musculoskeletal: DENIES: Joint pain, Muscle pain, Limited range of motion, Back pain Psychiatric: DENIES: Anxiety, Depression, Sleep disturbances Hematologic: DENIES: Bruising tendencies, Bleeding tendencies Endocrine: DENIES: Weight gain, Weight loss, Thyroid disease Past Family Social History Allergies: Coded Allergies: No Known Allergies (Verified Allergy, Unknown, 01/20/17) Past Medical History Hypertension. Reported Medications Reported Meds & Active Scripts Active Reported Doxazosin (Doxazosin Mesylate) 4 Mg Tab 4 Mg PO DAILY Amlodipine (Amlodipine Besylate) 5 Mg Tab 5 Mg PO DAILY Hydrochlorothiazide 12.5 Mg Cap 12.5 Mg PO BID Lisinopril 5 Mg Tab 20 Mg PO BID Active Ordered Medications Current Medications Medications (Trade) Dose Ordered Sig/Efrem Route Start Time Stop Time Status Last Admin Sodium Chloride 1,000 ml @ 70 mls/hr [id number] ONCE IV 01/20/17 10:56 01/21/17 01:13 01/20/17 11:33 Miscellaneous Information No Heparin, Warfarin, Aspir... UNSCH PRN XX 01/20/17 11:15 01/21/17 11:14 (NS Flush) 2 ml UNSCH PRN IV FLUSH 01/20/17 12:45 (NS Flush) 2 ml BID IV FLUSH 01/20/17 21:00 (Pepcid Inj) 20 mg Q12HR IV PUSH 01/20/17 21:00 (Duoneb Neb) 1 ampule Q4HR NEB PRN INH 01/20/17 12:45 Miscellaneous Information 1 [id number] XX 01/20/17 12:45 (Chlorhexidine 2% Cloth) 3 pack Taper DAILY@04 TOP 01/21/17 04:00 01/17/18 03:59 (Chlorhexidine 2% Cloth) 3 pack UNSCH PRN TOP 01/20/17 12:45 (Sue-Colace) 1 tab BID PO 01/20/17 21:00 (Milk Of Magnesia Liq) 30 ml Q12H PRN PO 01/20/17 12:45 (Senokot) 17.2 mg Q12H PRN PO 01/20/17 12:45 (Dulcolax Supp) 10 mg DAILY PRN RECTAL 01/20/17 12:45 (Lactulose Liq) 30 ml DAILY PRN PO 01/20/17 12:45 (Vasotec Inj) 1.25 mg Q4H PRN IV PUSH 01/20/17 13:00 (Trandate Inj) 10 mg Q2H PRN IV PUSH 01/20/17 13:00 (D50w (Vial) Inj) 50 ml UNSCH PRN IV PUSH 01/20/17 13:00 (Glucagon Inj) 1 mg UNSCH PRN OTHER 01/20/17 13:00 (NovoLOG SUPPLEMENTAL SCALE) 1 ACHS SLIDING SCALE SQ 01/20/17 17:00 Social History Denies alcohol use, tobacco use or substance use. Physical Exam Vital Signs Vital Signs Date Time Temp Pulse Resp B/P (MAP) Pulse Ox O2 Delivery O2 Flow Rate FiO2 01/20/17 13:15 01/20/17 12:57 74 16 139/78 (98) 100 Nasal Cannula 2.00 01/20/17 12:15 100 Nasal Cannula 2.00 01/20/17 12:05 75 20 140/91 (107) 100 Nasal Cannula 2.00 01/20/17 11:00 100 Nasal Cannula 2.00 01/20/17 10:55 98.3 72 20 157/82 (107) 100 Laboratory Laboratory Tests Test 01/20/17 10:55 01/20/17 12:30 White Blood Count 6.8 Red Blood Count 4.57 Hemoglobin 14.2 Bedside Hemoglobin 13.6 Hematocrit 41.2 Bedside Hematocrit 40.0 Mean Corpuscular Volume 90.1 Mean Corpuscular Hemoglobin 31.1 Mean Corpuscular Hemoglobin Concent 34.5 Red Cell Distribution Width 13.8 Platelet Count 231 Mean Platelet Volume 7.4 Neutrophils (%) (Auto) 57.2 Lymphocytes (%) (Auto) 33.6 Monocytes (%) (Auto) 7.5 Eosinophils (%) (Auto) 1.1 Basophils (%) (Auto) 0.6 Neutrophils # (Auto) 3.9 Lymphocytes # (Auto) 2.3 Monocytes # (Auto) 0.5 Eosinophils # (Auto) 0.1 Basophils # (Auto) 0.0 CBC Comment DIFF FINAL Differential Comment Prothrombin Time 10.2 Prothromb Time International Ratio 0.9 Activated Partial Thromboplast Time 27.9 Fibrinogen 374 Bedside Sodium 142 Bedside Potassium 3.3 Bedside Chloride 100 Bedside Blood Urea Nitrogen 16 Bedside Creatinine 1.0 Bedside Glucose 115 Total Creatine Kinase 841 Creatine Kinase MB 3.2 Creatine Kinase MB % 0.4 Troponin I LESS THAN 0.02 Urine Color YELLOW Urine Turbidity HAZY Urine pH 7.5 Urine Specific [place] 1.033 Urine Protein NEG Urine Glucose (UA) NEG Urine Ketones NEG Urine Occult Blood MOD Urine Nitrite NEG Urine Bilirubin NEG Urine Urobilinogen LESS THAN 2.0 Urine Leukocyte Esterase NEG Urine RBC 81 Urine WBC 3 Urine Amorphous Sediment RARE Urine Bacteria RARE Urine Opiates Screen NEG Urine Barbiturates Screen NEG Urine Amphetamines Screen NEG Urine Benzodiazepines Screen NEG Urine Cocaine Screen NEG Urine Cannabinoids Screen NEG Result Diagram: 01/20/17 1055 Imaging Last Impressions Neck CTA 01/20/17 1056 Signed Impressions: Service Date/Time: Friday, January 20, 2017 10:58 - CONCLUSION: Normal MRA of the extracranial carotid and vertebral arteries. Reagan Kulkarni MD Head CTA 01/20/17 1056 Signed Impressions: Service Date/Time: Friday, January 20, 2017 10:58 - CONCLUSION: No evidence of carotid or proximal cerebral filling defects or steno-occlusive disease. Reagan Kulkarni MD Head CT 01/20/17 0000 Signed Impressions: Service Date/Time: Friday, January 20, 2017 10:53 - CONCLUSION: No acute disease. Reagan Kulkarni MD Brain MRI 01/20/17 0000 Signed Impressions: Service Date/Time: Friday, January 20, 2017 13:11 - CONCLUSION: 1. Small, subcentimeter lacunar type infarct at the junction of the posterior limb of the right internal capsule and the adjacent thalamus. 2. Otherwise negative. No diffusion restriction to suggest an acute or subacute ischemic. Vega Colin MD Assessment and Plan Problem List: (1) Dysarthria due to cerebrovascular accident (CVA) ICD Codes: I63.9 - Cerebral infarction, unspecified; R47.1 - Dysarthria and anarthria Status: Acute Plan: 46 y/o M s/p CVA, small lacunar infarct hx of HTN consulted for DEUCE. No previous CV, or tachyarrhythmias. No NEED FOR DEUCE AT THIS TIME. Plan: 1.Transthoracic 2Dechocardiogram WITH BUBBLE STUDY AT BEDSIDE 2. Risk factors modification HTN and HLD 3. Anticoagulation per Neurology 4. Holter monitor upon discharge Thank you for the opportunity to take part in the care of this patient. Reconsult as necessary (2) Headache ICD Codes: R51 - Headache Status: Acute Luc Christensen MD Jan 20, 2017 14:15
[2017-01-20] MEDS ORDERED: INSULIN ASPART SUPPLEMENTAL SCALE SQ SCH (17:00)
[2017-01-20 19:24] LABS: HDL CHOLESTEROL 45.6 MG/DL (40.0-60.0)
[2017-01-20] MEDS: FAMOTIDINE 20 MG/2 ML VIAL IV PUSH SCH (21:00)
[2017-01-20] MEDS: SODIUM CHLORIDE 0.9% FLUSH 10 ML FLUSH IV FLUSH SCH (21:00)
[2017-01-20] MEDS: DOCUSATE SODIUM 50 MG/SENNA 8.6 MG TAB PO SCH (21:00)
[2017-01-21] VITALS (13 sets, daily range): BP systolic 131–168; BP diastolic 63–89; PULSE 62–89; RESP 12–20; TEMP 97.7–98.9; O2SAT 97–100
[2017-01-21] MEDS: CHLORHEXIDINE GLUCONATE 2 % 1 PACK (2 CLOTHS) TOP SCH (04:00)
[2017-01-21] MEDS ORDERED: POTASSIUM PHOSPHATE INJ 30 MMOL in SODIUM CHLOR 0.9% 250 ML INJ 250 ML IV PRN (06:45)
[2017-01-21] MEDS ORDERED: MAGNESIUM OXIDE 400 MG TAB PO PRN (06:45)
[2017-01-21] MEDS ORDERED: POTASSIUM CHLOR 20 MEQ PREMIX 100 ML IV PRN ×2 (06:45)
[2017-01-21] MEDS ORDERED: POTASSIUM CHLOR 40 MEQ PREMIX 100 ML IV PRN ×2 (06:45)
[2017-01-21] MEDS ORDERED: MAGNESIUM SULFATE INJ 4 GM in SODIUM CHLORIDE 0.9% INJ 92 ML IV PRN (06:45)
[2017-01-21] MEDS ORDERED: POTASSIUM PHOSPHATE MONOBASIC 500 MG TAB PO/TUBE PRN (06:45)
[2017-01-21] MEDS ORDERED: SODIUM PHOSPHATE INJ 30 MMOL in SODIUM CHLOR 0.9% 250 ML INJ 240 ML IV PRN (06:45)
[2017-01-21] MEDS ORDERED: POTASSIUM CHLORIDE 25 MEQ EFFERVESCENT TAB PO PRN (06:45)
[2017-01-21] MEDS ORDERED: POTASSIUM PHOSPHATE MONOBASIC 500 MG TAB PO PRN (06:45)
[2017-01-21] MEDS ORDERED: MAGNESIUM SULFATE INJ 2 GM in SODIUM CHLORIDE 0.9% INJ 96 ML IV PRN (06:45)
[2017-01-21] MEDS ORDERED: SODIUM CHLOR 0.9% 1000 ML INJ 1,000 ML IV SCH (07:00)
--- NOTE | 2017-01-21 07:08 | HHI.PR ---
Review/Management Diagnosis Right hemisphere stroke--significantly improved after iv TPA administration with only small completed lacunar stroke in right internal capsule on MRI moderately elevated LDL Plan follow up CT brain 24 hr post TPA and if negative for hemorrhage start aspirin 325 mg daily > 24 hour post TPA Follow up Echocardiogram with bubble study start statin follow up hypercoagulation labs. Diagnosis/Plan: Subjective Subjective Comments No acute events reported No headache Patient reports his left side strength now is back to normal. He feels his speech is also back to normal Active Medications Current Medications Medications (Trade) Dose Ordered Sig/Efrem Route Start Time Stop Time Status Last Admin Miscellaneous Information No Heparin, Warfarin, Aspir... UNSCH PRN XX 01/20/17 11:15 01/21/17 11:14 (NS Flush) 2 ml UNSCH PRN IV FLUSH 01/20/17 12:45 (NS Flush) 2 ml BID IV FLUSH 01/20/17 21:00 01/20/17 21:00 (Pepcid Inj) 20 mg Q12HR IV PUSH 01/20/17 21:00 01/20/17 21:00 (Duoneb Neb) 1 ampule Q4HR NEB PRN INH 01/20/17 12:45 Miscellaneous Information 1 Q361D XX 01/20/17 12:45 (Chlorhexidine 2% Cloth) 3 pack Taper DAILY@04 TOP 01/21/17 04:00 01/17/18 03:59 (Chlorhexidine 2% Cloth) 3 pack UNSCH PRN TOP 01/20/17 12:45 (Sue-Colace) 1 tab BID PO 01/20/17 21:00 (Milk Of Magnesia Liq) 30 ml Q12H PRN PO 01/20/17 12:45 (Senokot) 17.2 mg Q12H PRN PO 01/20/17 12:45 (Dulcolax Supp) 10 mg DAILY PRN RECTAL 01/20/17 12:45 (Lactulose Liq) 30 ml DAILY PRN PO 01/20/17 12:45 (Vasotec Inj) 1.25 mg Q4H PRN IV PUSH 01/20/17 13:00 (Trandate Inj) 10 mg Q2H PRN IV PUSH 01/20/17 13:00 Potassium Chloride 100 ml @ 50 mls/hr Q2H PRN IV 01/21/17 06:45 Potassium Chloride 100 ml @ 50 mls/hr Q2H PRN IV 01/21/17 06:45 (K-Lyte Cl Eff) 50 meq UNSCH PRN PO 01/21/17 06:45 Potassium Chloride 100 ml @ 25 mls/hr UNSCH PRN IV 01/21/17 06:45 Potassium Chloride 100 ml @ 50 mls/hr Q2H PRN IV 01/21/17 06:45 Magnesium Sulfate 4 gm/Sodium Chloride 100 ml @ 50 mls/hr UNSCH PRN IV 01/21/17 06:45 (Mag-Ox) 800 mg UNSCH PRN PO 01/21/17 06:45 Magnesium Sulfate 2 gm/Sodium Chloride 100 ml @ 50 mls/hr UNSCH PRN IV 01/21/17 06:45 (K-Phos) 2,000 mg Q4H PRN PO 01/21/17 06:45 Sodium Phosphate 30 mmol/Sodium Chloride 250 ml @ 42 mls/hr UNSCH PRN IV 01/21/17 06:45 (K-Phos) 2,000 mg UNSCH PRN PO/TUBE 01/21/17 06:45 Potassium Phosphate 30 mmol/ Sodium Chloride 260 ml @ 42 mls/hr UNSCH PRN IV 01/21/17 06:45 Sodium Chloride 1,000 ml @ 84 mls/hr [id number] IV 01/21/17 07:00 Allergies Allergies Coded Allergies No Known Allergies (Verified Allergy, Unknown, 01/20/17) Exam I&O / VS Vital Signs Date Time Temp Pulse Resp B/P (MAP) Pulse Ox O2 Delivery O2 Flow Rate FiO2 01/21/17 06:00 74 01/21/17 04:00 72 01/21/17 04:00 98.8 72 20 150/82 (104) 97 01/21/17 02:00 62 01/21/17 00:00 64 01/21/17 00:00 98.9 64 19 162/76 (104) 100 01/20/17 22:00 64 01/20/17 20:00 100 Nasal Cannula 2.00 01/20/17 20:00 98.5 72 18 135/70 (91) 100 01/20/17 19:00 Nasal Cannula 2.00 100 01/20/17 16:00 98.2 61 20 120/80 (93) 100 01/20/17 15:03 69 01/20/17 14:00 98.0 68 19 158/96 (116) 100 01/20/17 13:15 01/20/17 12:57 74 16 139/78 (98) 100 Nasal Cannula 2.00 01/20/17 12:15 100 Nasal Cannula 2.00 01/20/17 12:05 75 20 140/91 (107) 100 Nasal Cannula 2.00 01/20/17 11:00 100 Nasal Cannula 2.00 01/20/17 10:55 98.3 72 20 157/82 (107) 100 Exam Comments alert, oriented times 3. Speech is normal today with no sign of dysarthria, no aphasia, comprehension is normal CN--very minimal left upper motor neuron CN 7 palsy.PERRL. extraocular motility is normal. MOTOR--hold BUE and BLE up with no drift and with 5/5 strength BUE and BLE Sensory -- denies sensory loss Objective Radiology Results MRI brain--very small lacunar infarct right internal capsule with no hemorrhage CT brain 24 hour post TPA is pending CTA neck--normal with no carotid stenosis. CTA brain normal Micro and Labs Laboratory Tests Test 01/20/17 10:55 01/20/17 12:30 01/21/17 05:15 White Blood Count 6.8 Red Blood Count 4.57 Hemoglobin 14.2 Bedside Hemoglobin 13.6 Hematocrit 41.2 Bedside Hematocrit 40.0 Mean Corpuscular Volume 90.1 Mean Corpuscular Hemoglobin 31.1 Mean Corpuscular Hemoglobin Concent 34.5 Red Cell Distribution Width 13.8 Platelet Count 231 Mean Platelet Volume 7.4 Neutrophils (%) (Auto) 57.2 Lymphocytes (%) (Auto) 33.6 Monocytes (%) (Auto) 7.5 Eosinophils (%) (Auto) 1.1 Basophils (%) (Auto) 0.6 Neutrophils # (Auto) 3.9 Lymphocytes # (Auto) 2.3 Monocytes # (Auto) 0.5 Eosinophils # (Auto) 0.1 Basophils # (Auto) 0.0 CBC Comment DIFF FINAL Differential Comment Prothrombin Time 10.2 Prothromb Time International Ratio 0.9 Activated Partial Thromboplast Time 27.9 Fibrinogen 374 Bedside Sodium 142 Bedside Potassium 3.3 Bedside Chloride 100 Bedside Blood Urea Nitrogen 16 Bedside Creatinine 1.0 Bedside Glucose 115 Total Creatine Kinase 841 Creatine Kinase MB 3.2 Creatine Kinase MB % 0.4 Troponin I LESS THAN 0.02 Triglycerides Level 52 Cholesterol Level 152 LDL Cholesterol 96 HDL Cholesterol 45.6 Cholesterol/HDL Ratio 3.33 Urine Color YELLOW Urine Turbidity HAZY Urine pH 7.5 Urine Specific Gordon 1.033 Urine Protein NEG Urine Glucose (UA) NEG Urine Ketones NEG Urine Occult Blood MOD Urine Nitrite NEG Urine Bilirubin NEG Urine Urobilinogen LESS THAN 2.0 Urine Leukocyte Esterase NEG Urine RBC 81 Urine WBC 3 Urine Amorphous Sediment RARE Urine Bacteria RARE Urine Opiates Screen NEG Urine Barbiturates Screen NEG Urine Amphetamines Screen NEG Urine Benzodiazepines Screen NEG Urine Cocaine Screen NEG Urine Cannabinoids Screen NEG Potassium Level 3.3 Harshad Ferrari PhD Jan 21, 2017 07:08
[2017-01-21] MEDS: DOCUSATE SODIUM 50 MG/SENNA 8.6 MG TAB PO SCH ×2 (08:40→21:06)
[2017-01-21] MEDS: FAMOTIDINE 20 MG/2 ML VIAL IV PUSH SCH ×2 (09:38→21:06)
[2017-01-21] MEDS: SODIUM CHLORIDE 0.9% FLUSH 10 ML FLUSH IV FLUSH SCH ×2 (09:39→21:05)
--- NOTE | 2017-01-21 09:53 | HHI.CCPN ---
Subjective Remarks/Hospital Course This is a 46-year-old [place] male that presented to the ED via EMS as a stroke alert. Per report , the patient's symptoms started approximately 1010 a.m. with left-sided facial droop, dysarthria, and weakness of the left aspect of the body. Upon presentation to the ED , the patient also was noted to have left facial droop, weakness to left arm and left leg. The patient had fallen approximately 3 times after his symptoms started per EMS report. The patient does have a history of hypertension and took his blood pressure medications prior to arrival to include Doxazosin, amlodipine, lisinopril, and hydrochlorothiazide. The patient does complain of left-sided weakness and mild changes in his speech, he denies any headache or vision changes. The patient does have a history of hypertension, denies any previous history of CVA or TIA. Symptoms are moderate, started at 10:10 AM, and there are no current alleviating factors. A stroke alert was initiated, Dr. Ferrari neurology performed an evaluation, CT of the brain was performed which revealed no acute abnormality, CTA brain, and neck normal, as well as MRA. TPA was initiated at 11:30. Critical care medicine was consulted. Subjective: 01/21 Follow-up CT will be done later this morning. He is alert, sitting up in chair, normal speech. States he ambulated earlier this morning. Denies complaint. Telemetry reviewed, sinus Objective Vital Signs Date Time Temp Pulse Resp B/P (MAP) Pulse Ox O2 Delivery O2 Flow Rate FiO2 01/21/17 08:00 98.9 76 12 146/70 (95) 97 01/21/17 07:00 Room Air 01/20/17 20:00 2.00 01/20/17 19:00 100 Intake and Output 01/21/17 01/21/17 01/22/17 08:00 16:00 00:00 Intake Total 974 ml Output Total 625 ml Balance 349 ml Result Diagram: 01/20/17 1055 01/21/17 0515 Imaging Last Impressions Neck CTA 01/20/17 105 Signed Impressions: Service Date/Time: Friday, January 20, 2017 10:58 - CONCLUSION: Normal MRA of the extracranial carotid and vertebral arteries. Reagan Kulkarni MD Head CTA 01/20/17 1056 Signed Impressions: Service Date/Time: Friday, January 20, 2017 10:58 - CONCLUSION: No evidence of carotid or proximal cerebral filling defects or steno-occlusive disease. Reagan Kulkarni MD Head CT 01/20/17 0000 Signed Impressions: Service Date/Time: Friday, January 20, 2017 10:53 - CONCLUSION: No acute disease. Reagan Kulkarni MD Objective Remarks GENERAL: This is a well-developed well-nourished male, sitting up in bedside chair. SKIN: Warm and dry. HEAD: Atraumatic. Normocephalic. EYES: Pupils equal and round. No scleral icterus. No injection or drainage. EOMI ENT: No nasal bleeding or discharge. Mucous membranes pink and moist. NECK: Trachea midline. No JVD. CARDIOVASCULAR: Normal rate, regular rhythm. Telemetry sinus rhythm RESPIRATORY: No accessory muscle use. Clear to auscultation. Breath sounds equal bilaterally. GASTROINTESTINAL: Abdomen soft, non-tender, nondistended. No guarding. MUSCULOSKELETAL: Extremities without clubbing, cyanosis, or edema. No obvious deformities. NEUROLOGICAL: Awake and alert. No cranial nerve deficits. Strength 5 out of 5 in all extremities. Sensation intact. Normal speech A/P Problem List: (1) Acute ischemic stroke ICD Code: I63.9 - Cerebral infarction, unspecified Status: Acute (2) HTN (hypertension) ICD Code: I10 - Essential (primary) hypertension Status: Chronic (3) Hypokalemia ICD Code: E87.6 - Hypokalemia Status: Acute (4) Microscopic hematuria ICD Code: R31.29 - Other microscopic hematuria Status: Acute Assessment and Plan Assessment This is a 46-year-old male with history of hypertension, on 4 antihypertensive meds that presented to the ED with acute right hemispheric CVA status post TPA. Assessment Plan Plan by systems: Neurologic: Acute right hemispheric stroke Status post TPA. CT brain01/20/17 - no acute disease CT a brain and carotid -negative MRI brain - small lacunar infarct posterior limb of right internal capsule. No diffusion restriction. Follow-up CT pending. If negative will start aspirin per neurology recommendations. Initiate statin. Check baseline LFT Follow-up hypercoagulability labs. Follow-up 2-D echo with bubble study. Telemetry reviewed - sinus Neurology following, Dr. Ferrari Respiratory: On room air Cardiovascular: Hypertension Maintain SBP less than 180/105 for 24 hours post TPA Resume norvasc today. Also on lisinopril, HCTZ, doxazosin at home. FEN/Renal: Hypokalemia --D/c IVF and Flores --Replace electrolytes per ICU electrolyte replacement /GI: Swallow eval and advance diet as appropriate. Bowel regimen PRN Heme/ID: Microscopic Hematuria - status post TPA. Follow-up UA at a later time to confirm resolution Monitor CBC Follow-up prothrombotic studies Endocrine: Glucose monitoring, low dose insulin regimen -- SSI Prophylaxis: GI Prophylaxis Famotidine BID DVT Prophylaxis -- SCDs No pharmacological DVT prophylaxis at this time status post TPA Lines: Peripheral IVs providing adequate access. Dispo: Transfer to floor later today of CT negative. Consult hospitalist to assume care 01/22. Level 3 Problem Qualifiers (1) HTN (hypertension): Qualified Codes: I10 - Essential (primary) hypertension Kayce Rainse MD Jan 21, 2017 09:53
[2017-01-21] MEDS ORDERED: POTASSIUM CHLORIDE 20 MEQ CONTROLLED RELEASE TAB PO ONE (12:00)
[2017-01-21] MEDS: amLODIPine BESYLATE 5 MG TAB PO SCH (12:15)
[2017-01-21] MEDS: ATORVASTATIN 20 MG TAB PO SCH (12:15)
--- NOTE | 2017-01-21 13:04 | RADRPT ---
EXAM DATE/TIME: 01/21/2017 12:40 [facility] COMPARISON: MRI BRAIN W & W/O CONTRAST, January 20, 2017, 13:11. CT BRAIN W/O CONTRAST, January 20, 2017, 10: 53. INDICATIONS : Twenty four hour follow up stroke alert RADIATION DOSE: 39.05 CTDIvol (mGy) MEDICAL HISTORY : Cardiovascular disease. Hypertension. SURGICAL HISTORY : None. ENCOUNTER: Subsequent ACUITY: 2 days PAIN SCALE: 0/10 LOCATION: cranial TECHNIQUE: Multiple contiguous axial images were obtained of the head. Using automated exposure control and adj ustment of the mA and/or kV according to patient size, radiation dose was kept as low as reasonably a chievable to obtain optimal diagnostic quality images. DICOM format image data is available electro nically for review and comparison. FINDINGS: CEREBRUM: The ventricles are normal for age. No evidence of midline shift, mass lesion, hemorrhage or acute in farction. No extra-axial fluid collections are seen. POSTERIOR FOSSA: The cerebellum and brainstem are intact. The 4th ventricle is midline. The cerebellopontine angle i s unremarkable. EXTRACRANIAL: The visualized portion of the orbits is intact. SKULL: The calvaria is intact. No evidence of skull fracture. CONCLUSION: No acute disease. Massimo Davis Jr., MD on January 21, 2017 at 13:01 Board Certified Radiologist. This report was verified electronically.
[2017-01-21] MEDS: ASPIRIN 325 MG TAB PO SCH (17:04)
--- NOTE | 2017-01-21 19:03 | EKG ---
Date Performed: 01/20/2017 Time Performed: 11:20:57 PTAGE: 46 years EKG: Sinus rhythm NONSPECIFIC T-WAVE ABNORMALITY BORDERLINE ECG NO PREVIOUS TRACING DOCTOR: Prince Sung Interpretating Date/Time 01/21/2017 19:02:55
[2017-01-21] MEDS: DOXAZOSIN MESYLATE 4 MG TAB PO SCH (21:06)
[2017-01-22] VITALS (9 sets, daily range): BP systolic 143–151; BP diastolic 78–88; PULSE 68–82; RESP 17–20; TEMP 97.1–98.2; O2SAT 97–100
[2017-01-22] MEDS: CHLORHEXIDINE GLUCONATE 2 % 1 PACK (2 CLOTHS) TOP SCH (04:00)
--- NOTE | 2017-01-22 08:28 | HHI.PR ---
Subjective Remarks He is currently lying in bed and reports feeling much better. He has regained the strength for the extremities. He is without any other adverse changes. Objective - Vital Signs Date Time Temp Pulse Resp B/P (MAP) Pulse Ox O2 Delivery O2 Flow Rate FiO2 01/22/17 08:00 98.2 76 18 151/81 (104) 99 01/22/17 04:00 97.5 81 20 151/83 (105) 98 01/22/17 04:00 97.5 01/22/17 00:00 98.1 77 20 144/80 (101) 97 01/21/17 22:00 77 01/21/17 21:00 77 01/21/17 20:00 98.5 75 20 141/71 (94) 97 01/21/17 17:45 97.7 81 16 131/63 (85) 100 01/21/17 16:00 97.8 89 20 160/85 (110) 98 01/21/17 16:00 89 01/21/17 14:00 84 01/21/17 12:00 80 01/21/17 12:00 98.7 80 16 168/89 (115) 100 01/21/17 10:00 76 I/O 01/21/17 01/21/17 01/21/17 01/22/17 01/22/17 01/22/17 07:00 15:00 23:00 07:00 15:00 23:00 Intake Total 974 ml 129 ml 720 ml Output Total 625 ml 1075 ml Balance 349 ml 129 ml -355 ml Intake Oral 720 ml IV Total 974 ml 129 ml Output Urine Total 625 ml 1075 ml # Voids 1 4 # Bowel Movements 0 0 Result Diagram: 01/20/17 1055 01/21/17 0515 Objective Remarks GENERAL: Alert and well oriented. SKIN: Warm and dry. HEAD: Normocephalic and atraumatic. EYES: No scleral icterus. No injection or drainage. NECK: Supple, trachea midline. No JVD or lymphadenopathy. CARDIOVASCULAR: Regular rate and rhythm without murmurs, gallops, or rubs. RESPIRATORY: Breath sounds equal bilaterally. No accessory muscle use. GASTROINTESTINAL: Abdomen soft, non-tender, nondistended. MUSCULOSKELETAL: Symmerical strength testing at 5/5. No cyanosis, or edema. BACK: Nontender without obvious deformity. No CVA tenderness. NEURO: There are no lateralizing focal motor deficits. A/P Assessment and Plan ASSESSMENT 1. Acute Cerebral Vascular Accident. 2. Left Hemiparesis-resolved. 3. Hypertension. 4. Hyperlipidemia. PLAN 1. Continue with the current medication regimen. 2. Activity up out of bed as tolerated. 3. Neurology disposition. 4. Discharge Planning. 5. DVT and PE prophylaxis. Miguel Angel Delacruz MD Jan 22, 2017 08:28
[2017-01-22 08:39] LABS: INDIRECT BILIRUBIN 0.3 MG/DL (0.0-0.8); TOTAL BILIRUBIN ADULT 0.4 MG/DL (0.2-1.0)
[2017-01-22] MEDS: ASPIRIN 325 MG TAB PO SCH (08:51)
[2017-01-22] MEDS: FAMOTIDINE 20 MG/2 ML VIAL IV PUSH SCH ×2 (08:51→20:44)
[2017-01-22] MEDS: amLODIPine BESYLATE 5 MG TAB PO SCH (08:51)
[2017-01-22] MEDS: ATORVASTATIN 20 MG TAB PO SCH (08:51)
[2017-01-22] MEDS: DOCUSATE SODIUM 50 MG/SENNA 8.6 MG TAB PO SCH ×2 (08:51→20:43)
[2017-01-22] MEDS: SODIUM CHLORIDE 0.9% FLUSH 10 ML FLUSH IV FLUSH SCH ×2 (08:51→20:48)
--- NOTE | 2017-01-22 12:04 | ECHRPT ---
Indication: CVA/TIA CONCLUSIONS Normal left ventricular size. Wall thickness is normal. The left ventricular systolic function is hyperdynamic with an estimated ejection fraction in the ra nge of 65- 70%. The left atrial size is mildly dilated. [id number] mitral valve regurgitation. There is trace tricuspid valve regurgitation. BP: 168 / 89 HR: 80 Rhythm: Sinus MEASUREMENTS (Male / Female) Normal Values Technical Quality:Fair 2D ECHO LV Diastolic Diameter PLAX 5.1 cm 4.2 - 5.9 / 3.9 - 5.3 cm LV Systolic Diameter PLAX 3.4 cm IVS Diastolic Thickness 0.9 cm 0.6 - 1.0 / 0.6 - 0.9 cm LVPW Diastolic Thickness 0.9 cm 0.6 - 1.0 / 0.6 - 0.9 cm LV Relative Wall Thickness 0.4 LVOT Diameter 2.1 cm Aortic Root Diameter 2.9 cm LA Systolic Diameter LX 4.0 cm 3.0 - 4.0 / 2.7 - 3.8 cm M-MODE AV Cusp Separation MM 2.0 cm DOPPLER AV Peak Velocity 121.0 cm/s AV Peak Gradient 5.9 mmHg AV Mean Gradient 3.0 mmHg AV Velocity Time Integral 22.0 cm LVOT Peak Velocity 103.0 cm/s LVOT Peak Gradient 4.2 mmHg LVOT Velocity Time Integral 20.1 cm AV Area Cont Eq vti 3.2 cm AV Area Cont Eq pk 2.9 cm Mitral E Point Velocity 105.0 cm/s Mitral A Point Velocity 90.3 cm/s Mitral E to A Ratio 1.2 LV E' Lateral Velocity 6.2 cm/s Mitral E to LV E' Lateral Ratio 16.8 LV E' Septal Velocity 6.6 cm/s Mitral E to LV E' Septal Ratio 15.8 PV Peak Velocity 97.8 cm/s PV Peak Gradient 3.8 mmHg FINDINGS LEFT VENTRICLE Normal left ventricular size. Wall thickness is normal. The left ventricular systolic function is hyperdynamic with an estimated ejection fraction in the ra nge of 65- 70%. RIGHT VENTRICLE Normal right ventricular size and systolic function. LEFT ATRIUM The left atrial size is mildly dilated. RIGHT ATRIUM The right atrial size is normal. ATRIAL SEPTUM Normal atrial septal thickness without atrial level shunting by limited color doppler interrogation. AORTA The aortic root and proximal ascending aorta are normal in size on limited imaging. MITRAL VALVE [id number] mitral valve regurgitation. AORTIC VALVE Trileaflet aortic valve. No aortic valve stenosis or regurgitation. TRICUSPID VALVE There is trace tricuspid valve regurgitation. PULMONARY VALVE The pulmonary valve is not well visualized. VESSELS The inferior vena cava is normal in size. PERICARDIUM No pericardial effusion. Vasquez Fuentes MD, FACC (Electronically Signed) Final Date:22 January 2017 12:03
[2017-01-22] MEDS: DOXAZOSIN MESYLATE 4 MG TAB PO SCH (20:43)
--- NOTE | 2017-01-22 20:56 | HHI.PR ---
Review/Management Diagnosis Right hemisphere stroke--significantly improved after iv TPA administration with only small completed lacunar stroke in right internal capsule on MRI moderately elevated LDL Plan continue asa and lipitor Ok from neurology standpoint to discharge tomorrow if stable Please schedule follow up with me in office in 3 weeks May need longterm telemetry monitor as out patient (e.g. LINQ recorder) to r/o afib I will follow up hypercoagulability labs as out patient Diagnosis/Plan: Subjective Subjective Comments No acute events reported He feels back to normal Active Medications Current Medications Medications (Trade) Dose Ordered Sig/Efrem Route Start Time Stop Time Status Last Admin (NS Flush) 2 ml UNSCH PRN IV FLUSH 01/20/17 12:45 (NS Flush) 2 ml BID IV FLUSH 01/20/17 21:00 01/22/17 08:51 (Pepcid Inj) 20 mg Q12HR IV PUSH 01/20/17 21:00 01/22/17 08:51 (Duoneb Neb) 1 ampule Q4HR NEB PRN INH 01/20/17 12:45 Miscellaneous Information 1 Q361D XX 01/20/17 12:45 (Chlorhexidine 2% Cloth) 3 pack Taper DAILY@04 TOP 01/21/17 04:00 01/17/18 03:59 (Chlorhexidine 2% Cloth) 3 pack UNSCH PRN TOP 01/20/17 12:45 (Sue-Colace) 1 tab BID PO 01/20/17 21:00 01/22/17 20:43 (Milk Of Magnesia Liq) 30 ml Q12H PRN PO 01/20/17 12:45 (Senokot) 17.2 mg Q12H PRN PO 01/20/17 12:45 (Dulcolax Supp) 10 mg DAILY PRN RECTAL 01/20/17 12:45 (Lactulose Liq) 30 ml DAILY PRN PO 01/20/17 12:45 (Vasotec Inj) 1.25 mg Q4H PRN IV PUSH 01/20/17 13:00 (Trandate Inj) 10 mg Q2H PRN IV PUSH 01/20/17 13:00 (Lipitor) 20 mg DAILY PO 01/21/17 11:00 01/22/17 08:51 (Norvasc) 5 mg DAILY PO 01/21/17 10:15 01/22/17 08:51 (Aspirin) 325 mg DAILY PO 01/21/17 17:00 01/22/17 08:51 (Cardura) 4 mg HS PO 01/21/17 21:00 01/22/17 20:43 Allergies Allergies Coded Allergies No Known Allergies (Verified Allergy, Unknown, 01/20/17) Exam I&O / VS 01/22/17 01/22/17 01/23/17 15:00 23:00 07:00 # Voids 4 # Bowel Movements 0 Vital Signs Date Time Temp Pulse Resp B/P (MAP) Pulse Ox O2 Delivery O2 Flow Rate FiO2 01/22/17 18:02 99 21 01/22/17 17:25 97.8 78 17 148/88 (108) 99 01/22/17 12:36 97.1 71 18 143/78 (99) 100 01/22/17 11:03 68 01/22/17 08:00 98.2 76 18 151/81 (104) 99 01/22/17 04:00 97.5 81 20 151/83 (105) 98 01/22/17 04:00 97.5 01/22/17 00:00 98.1 77 20 144/80 (101) 97 01/21/17 22:00 77 01/21/17 21:00 77 Exam Comments alert, oriented times 3. Speech is normal today with no sign of dysarthria, no aphasia, comprehension is normal CN normal--no facial asymmetry today MOTOR--hold BUE and BLE up with no drift and with 5/5 strength BUE and BLE Sensory -- denies sensory loss Objective Micro and Labs Laboratory Tests Test 01/22/17 07:45 Total Bilirubin 0.4 Direct Bilirubin 0.1 Indirect Bilirubin 0.3 Aspartate Amino Transf (AST/SGOT) 24 Alanine Aminotransferase (ALT/SGPT) 29 Alkaline Phosphatase 96 Total Protein 7.1 Albumin 3.3 Rapid Plasma Reagin NON-REACTIVE Diagnostic Tests ECHO--normal EF, mild LA dilation. No definite source of emboli seen Harshad Ferrari PhD Jan 22, 2017 20:56
[2017-01-23] VITALS: BP 142/83; PULSE 82; RESP 20; TEMP 98.3; O2SAT 100
[2017-01-23 04:00] VITALS: BP 132/75; PULSE 67; RESP 20; TEMP 98.1; O2SAT 98
[2017-01-23] MEDS: CHLORHEXIDINE GLUCONATE 2 % 1 PACK (2 CLOTHS) TOP SCH (04:00)
[2017-01-23 07:23] VITALS: PULSE 72
[2017-01-23 08:00] VITALS: BP 144/84; PULSE 70; RESP 18; TEMP 98; O2SAT 100
[2017-01-23] MEDS: ATORVASTATIN 20 MG TAB PO SCH (08:15)
[2017-01-23] MEDS: ASPIRIN 325 MG TAB PO SCH (08:15)
[2017-01-23] MEDS: amLODIPine BESYLATE 5 MG TAB PO SCH (08:15)
[2017-01-23] MEDS: DOCUSATE SODIUM 50 MG/SENNA 8.6 MG TAB PO SCH (08:15)
[2017-01-23] MEDS: FAMOTIDINE 20 MG/2 ML VIAL IV PUSH SCH (08:17)
[2017-01-23] MEDS: SODIUM CHLORIDE 0.9% FLUSH 10 ML FLUSH IV FLUSH SCH (08:18)
[2017-01-23 12:00] VITALS: BP 137/65; PULSE 55; RESP 18; TEMP 98.6; O2SAT 98
[2017-01-23] MEDS ORDERED: ASA325 PO (13:23)
[2017-01-23] MEDS ORDERED: ATOR20TA15 PO (13:23)
--- NOTE | 2017-01-23 13:29 | HHI.PR ---
Subjective Remarks He is doing well and has no new complaints. Disposition is given by Neurology as stable for discharge. Objective - Vital Signs Date Time Temp Pulse Resp B/P (MAP) Pulse Ox O2 Delivery O2 Flow Rate FiO2 01/23/17 12:00 98.6 55 18 137/65 (89) 98 01/23/17 08:00 98.0 70 18 144/84 (104) 100 01/23/17 07:23 72 01/23/17 04:00 98.1 67 20 132/75 (94) 98 01/23/17 00:00 98.3 82 20 142/83 (102) 100 01/22/17 20:30 82 01/22/17 20:00 97.9 78 20 149/82 (104) 99 01/22/17 18:02 99 21 01/22/17 17:25 97.8 78 17 148/88 (108) 99 I/O 01/22/17 01/22/17 01/22/17 01/23/17 01/23/17 01/23/17 07:00 15:00 23:00 07:00 15:00 23:00 Intake Total 720 ml Balance 720 ml Intake Oral 720 ml # Voids 4 5 3 # Bowel Movements 0 0 0 Result Diagram: 01/20/17 1055 01/21/17 0515 Objective Remarks GENERAL: Alert and in no distress. SKIN: Warm and dry. HEAD: Normocephalic. Atraumatic. EYES: No scleral icterus. No injection or drainage. NECK: Supple, trachea midline. No JVD or lymphadenopathy. CARDIOVASCULAR: Regular rate and rhythm without murmurs, gallops, or rubs. RESPIRATORY: Breath sounds equal bilaterally. No accessory muscle use. GASTROINTESTINAL: Abdomen soft, non-tender, nondistended. MUSCULOSKELETAL: No cyanosis, or edema. BACK: Nontender without obvious deformity. No CVA tenderness. NEURO: No motor deficits to exam. A/P Assessment and Plan ASSESSMENT 1. Acute Cerebral Vascular Accident. 2. Left Hemiparesis-resolved. 3. Hypertension. 4. Hyperlipidemia. MEDICALLY STABLE STATUS PLAN 1. Continue with the current medication regimen. 2. Neurology disposition is given. 3. DVT and PE prophylaxis. OKAY TO DISCHARGE TODAY Miguel Angel Delacruz MD Jan 23, 2017 13:29
[2017-01-25 05:40] LABS: THROMBIN TIME FOR LA ND sec (13-19)
== END 2017-01-23 15:15 | disposition home or self-care (01) | DRG 62 ==
LOC: NEPC 10:54 → NEDA 12:17 → N03A 14:00 → N05A 01-21 17:37
PROVIDERS: ADMIT Internal Medicine; ATTEND Internal Medicine
DX: I63.9 Cerebral infarction, unspecified (principal); G81.94 Hemiplegia, unspecified affecting left nondominant side; I10 Essential (primary) hypertension; R47.1 Dysarthria and anarthria; R47.81 Slurred speech; R29.706 NIHSS score 6; R31.29 Other microscopic hematuria; E87.6 Hypokalemia
CPT/HCPCS: 51702; 70450; 70496; 70498; 70553; 80061; 80076; 80307; 81001; 81240; 81241; 82435; 82550; 82552; 82565; 82947; 82948; 84132; 84295; 84484; 84520; 85025; 85303; 85306; 85384; 85610; 85613; 85730; 86147; 86592; 86850; 86900; 86901; 87641; 93005; 93306; 96361; 96374; 96375; A9579; J2997; J3480; J7030; Q9967